=== PATIENT | female | born 1960 | race Caucasian/White ===

== ENCOUNTER 2017-09-12 13:49 | Inpatient (IN) | payer OTHER ==
[~2017-09-12] VITALS: Ht 157.5 cm; Wt 57.9 kg
[~2017-09-12 13:49] MED LIST: PERCOCET 5/31 TABLET PO; VALIUM5 MG PO
[2017-09-12 14:27] LABS: HEMATOCRIT 46.3 % (36.0-46.0); MCH 30.7 PG (29.0-34.0); MCHC 34.6 G/DL (30.0-36.0); MCV 88.7 FL (83-99); PLATELET COUNT 366 K/uL (156-360); RBC DIS.WIDTH-CV 11.9 % (11.8-14.6); RBC DIS.WIDTH-SD 38.9 % (39-53); RED BLOOD COUNT 5.22 M/uL (3.80-5.20); WHITE BLOOD COUNT 21.1 K/uL (4.1-10.2)
[2017-09-12 14:35] LABS: CHLORIDE 101 mEq/L (99-109)
[2017-09-12 14:36] LABS: POTASSIUM 3.5 mEq/L (3.7-5.4); SODIUM 140 mEq/L (136-147)
[2017-09-12 14:37] LABS: GLUCOSE 113 mg/dL (70-99)
[2017-09-12 14:41] LABS: CREATININE 0.7 mg/dL (0.6-1.3); GFR ESTIMATE (CALCULATED) > 59 mL/min/
[2017-09-12 14:42] LABS: UREA NITROGEN (BUN) 6 mg/dL (9-23)
[2017-09-12 15:11] LABS: ALBUMIN 4.6 g/dL (3.2-4.8)
[2017-09-12 15:14] LABS: TOTAL PROTEIN 7.7 g/dL (6.4-8.3)
[2017-09-12 15:15] LABS: TOTAL BILIRUBIN 0.8 mg/dL (0.0-1.0)
[2017-09-12 15:17] LABS: ALKALINE PHOSPHATASE 136 IU/L (3-129)
[2017-09-12 15:19] LABS: AST (GOT) 20 IU/L (2-34); DIRECT BILIRUBIN 0.3 mg/dL (0.0-0.3)
[2017-09-12 15:20] LABS: ALT (GPT) 18 IU/L (3-49); LIPASE 21 U/L (1.0-51.0)
[2017-09-12 16:51] LABS: APPEARANCE CLEAR ((CLEAR)); BILIRUBIN NEGATIVE; BLOOD NEGATIVE; COLOR YELLOW ((YELLOW)); GLUCOSE (STRIP) NEGATIVE; KETONES NEGATIVE; LEUKOCYTES NEGATIVE; NITRITE NEGATIVE; PROTEIN (STRIP) NEGATIVE; UROBILINOGEN 0.2 MG/DL (0.2-1.0)
[2017-09-12] MEDS ORDERED: ALEVE220 MG PO (17:12)
[2017-09-12] MEDS ORDERED: EXCEDRIN MIGRA1 EAC3 PO (17:15)
[2017-09-12] MEDS ORDERED: VITAMIN E PO (17:18)
[2017-09-12] MEDS ORDERED: WOMEN'S 50 PLU1 EACH PO (17:18)
[2017-09-12] MEDS ORDERED: WOMEN'S DAILY1 EAC5 PO (17:21)
[2017-09-12 17:30] LABS: INTER. NORMALIZED RATIO 1.1
[2017-09-12 17:33] LABS: PTT 31.2 SEC (25-37)
[2017-09-12 20:20] VITALS: BP 180/92
[2017-09-12 23:29] VITALS: BP 142/74
[2017-09-13 00:38] LABS: BASOPHIL (%) 0.1 % (0-1); EOSINOPHIL (%) 0 % (0-5); HEMATOCRIT 41.9 % (36.0-46.0); HEMOGLOBIN 14.5 G/DL (11.9-15.5); IMMATURE GRANULOCYTE (%) 0.4 % (0.0-0.7); LYMPHOCYTE (%) 16.5 % (15-42); LYMPHOCYTE COUNT 3.4 K/uL (1.0-2.8); MCHC 34.6 G/DL (30.0-36.0); MCV 89.7 FL (83-99); MONOCYTE (%) 4.8 % (3-12); NEUTROPHIL (%) 78.2 % (45-76); NEUTROPHIL COUNT 15.8 K/uL (1.8-6.4); PLATELET COUNT 306 K/uL (156-360); RBC DIS.WIDTH-CV 12.3 % (11.8-14.6); RBC DIS.WIDTH-SD 40.5 % (39-53); RED BLOOD COUNT 4.67 M/uL (3.80-5.20); WHITE BLOOD COUNT 20.3 K/uL (4.1-10.2)
[2017-09-13 03:30] VITALS: BP 173/90
[2017-09-13 06:29] LABS: HEMATOCRIT 41.9 % (36.0-46.0); HEMOGLOBIN 14.4 G/DL (11.9-15.5); MCH 30.7 PG (29.0-34.0); MCHC 34.4 G/DL (30.0-36.0); MCV 89.3 FL (83-99); PLATELET COUNT 316 K/uL (156-360); RBC DIS.WIDTH-CV 12.5 % (11.8-14.6); RBC DIS.WIDTH-SD 40.8 % (39-53); RED BLOOD COUNT 4.69 M/uL (3.80-5.20); WHITE BLOOD COUNT 19.7 K/uL (4.1-10.2)
[2017-09-13 06:56] LABS: ALBUMIN 3.6 G/DL (3.2-4.8); ALKALINE PHOSPHATASE 94 IU/L (3-129); ALT (GPT) 12 IU/L (3-49); AST (GOT) 12 IU/L (2-34); CHLORIDE 107 MEQ/L (99-109); CREATININE 0.4 MG/DL (0.6-1.3); GFR ESTIMATE (CALCULATED) > 59 mL/min/; GLUCOSE 100 mg/dL (70-99); POTASSIUM 3.3 MEQ/L (3.7-5.4); SODIUM 142 MEQ/L (136-147); TOTAL BILIRUBIN 0.6 MG/DL (0.0-1.0); TOTAL PROTEIN 6.4 G/DL (6.4-8.3); UREA NITROGEN (BUN) 4 mg/dL (9-23)
[2017-09-13 07:18] VITALS: BP 141/97
[2017-09-13 11:49] VITALS: BP 112/72
[2017-09-13 16:17] VITALS: BP 131/76
[2017-09-13 19:30] VITALS: BP 125/77
[2017-09-14 00:17] VITALS: BP 140/79
[2017-09-14 07:05] VITALS: BP 130/63
[2017-09-14 13:29] LABS: HEMATOCRIT 40.3 % (36.0-46.0); HEMOGLOBIN 13.2 G/DL (11.9-15.5); MCH 30.6 PG (29.0-34.0); MCHC 32.8 G/DL (30.0-36.0); PLATELET COUNT 285 K/uL (156-360); RBC DIS.WIDTH-CV 12.6 % (11.8-14.6); RBC DIS.WIDTH-SD 43.5 % (39-53); RED BLOOD COUNT 4.31 M/uL (3.80-5.20); WHITE BLOOD COUNT 14.1 K/uL (4.1-10.2)
[2017-09-14 13:30] LABS: MCV 93.5 FL (83-99)
[2017-09-14 13:44] LABS: CHLORIDE 109 MEQ/L (99-109); CREATININE 0.6 MG/DL (0.6-1.3); GFR ESTIMATE (CALCULATED) > 59 mL/min/; GLUCOSE 80 mg/dL (70-99); POTASSIUM 3.5 MEQ/L (3.7-5.4); SODIUM 144 MEQ/L (136-147); UREA NITROGEN (BUN) 4 mg/dL (9-23)
[2017-09-14 20:00] VITALS: BP 132/61
[2017-09-15 01:33] VITALS: BP 162/94
[2017-09-15 05:23] LABS: PROTEIN C FUNCTIONAL ACTIVITY+ 80 % (70-180)
[2017-09-15 08:11] VITALS: BP 142/75
[2017-09-15 08:48] LABS: HEMATOCRIT 38.5 % (36.0-46.0); HEMOGLOBIN 12.9 G/DL (11.9-15.5); MCH 30.4 PG (29.0-34.0); MCHC 33.5 G/DL (30.0-36.0); MCV 90.8 FL (83-99); PLATELET COUNT 313 K/uL (156-360); RBC DIS.WIDTH-CV 12.6 % (11.8-14.6); RBC DIS.WIDTH-SD 41.6 % (39-53); RED BLOOD COUNT 4.24 M/uL (3.80-5.20); WHITE BLOOD COUNT 16.9 K/uL (4.1-10.2)
[2017-09-15 13:26] LABS: Protein S, Free 124 % normal (50-147)
[2017-09-15 15:39] VITALS: BP 116/66
[2017-09-15 19:36] VITALS: BP 116/67
[2017-09-16 00:12] VITALS: BP 129/65
[2017-09-16 03:53] VITALS: BP 114/58
[2017-09-16 06:16] LABS: BASOPHIL (%) 0.3 % (0-1); EOSINOPHIL (%) 1.4 % (0-5); EOSINOPHIL COUNT 0.2 K/uL (0-0.3); HEMATOCRIT 35.4 % (36.0-46.0); HEMOGLOBIN 11.9 G/DL (11.9-15.5); IMMATURE GRANULOCYTE (%) 0.3 % (0.0-0.7); LYMPHOCYTE (%) 29.2 % (15-42); LYMPHOCYTE COUNT 3.4 K/uL (1.0-2.8); MCH 30.7 PG (29.0-34.0); MCHC 33.6 G/DL (30.0-36.0); MCV 91.5 FL (83-99); MONOCYTE (%) 7.2 % (3-12); MONOCYTE COUNT 0.9 K/uL (0-0.8); NEUTROPHIL (%) 61.6 % (45-76); NEUTROPHIL COUNT 7.3 K/uL (1.8-6.4); PLATELET COUNT 289 K/uL (156-360); RBC DIS.WIDTH-CV 12.6 % (11.8-14.6); RBC DIS.WIDTH-SD 41.7 % (39-53); RED BLOOD COUNT 3.87 M/uL (3.80-5.20); WHITE BLOOD COUNT 11.8 K/uL (4.1-10.2)
[2017-09-16 06:44] LABS: ALKALINE PHOSPHATASE 71 IU/L (3-129); ALT (GPT) 8 IU/L (3-49); AST (GOT) 10 IU/L (2-34); CHLORIDE 109 MEQ/L (99-109); CREATININE 0.5 MG/DL (0.6-1.3); GFR ESTIMATE (CALCULATED) > 59 mL/min/; GLUCOSE 83 mg/dL (70-99); POTASSIUM 3.1 MEQ/L (3.7-5.4); SODIUM 144 MEQ/L (136-147); UREA NITROGEN (BUN) 2 mg/dL (9-23)
[2017-09-16 06:47] LABS: TOTAL BILIRUBIN 0.4 MG/DL (0.0-1.0)
[2017-09-16 06:50] VITALS: BP 126/67
[2017-09-16 11:15] VITALS: BP 123/60
[2017-09-16 15:30] VITALS: BP 138/72
[2017-09-17 00:02] VITALS: BP 135/59
[2017-09-17 06:16] LABS: INTER. NORMALIZED RATIO 1.2
[2017-09-17 06:19] LABS: PTT 84.5 SEC (25-37)
[2017-09-17 06:45] VITALS: BP 151/79
[2017-09-17 11:52] LABS: HEMATOCRIT 36.2 % (36.0-46.0); HEMOGLOBIN 12.1 G/DL (11.9-15.5); MCH 30.3 PG (29.0-34.0); MCHC 33.4 G/DL (30.0-36.0); MCV 90.5 FL (83-99); PLATELET COUNT 359 K/uL (156-360); RBC DIS.WIDTH-CV 12.4 % (11.8-14.6); RBC DIS.WIDTH-SD 41.3 % (39-53); WHITE BLOOD COUNT 10.6 K/uL (4.1-10.2)
[2017-09-17 15:40] VITALS: BP 137/65
[2017-09-18 00:38] VITALS: BP 113/57
[2017-09-18 06:14] LABS: BASOPHIL (%) 0.4 % (0-1); EOSINOPHIL (%) 0.8 % (0-5); EOSINOPHIL COUNT 0.1 K/uL (0-0.3); HEMATOCRIT 34.8 % (36.0-46.0); HEMOGLOBIN 11.5 G/DL (11.9-15.5); IMMATURE GRANULOCYTE (%) 0.6 % (0.0-0.7); LYMPHOCYTE (%) 31.7 % (15-42); LYMPHOCYTE COUNT 2.9 K/uL (1.0-2.8); MCH 29.8 PG (29.0-34.0); MCV 90.2 FL (83-99); MONOCYTE (%) 9.2 % (3-12); MONOCYTE COUNT 0.8 K/uL (0-0.8); NEUTROPHIL (%) 57.3 % (45-76); NEUTROPHIL COUNT 5.2 K/uL (1.8-6.4); PLATELET COUNT 352 K/uL (156-360); RBC DIS.WIDTH-CV 12.4 % (11.8-14.6); RBC DIS.WIDTH-SD 40.5 % (39-53); RED BLOOD COUNT 3.86 M/uL (3.80-5.20)
[2017-09-18 06:45] VITALS: BP 125/62
[2017-09-18 13:40] LABS: INTER. NORMALIZED RATIO 1.2
[2017-09-18 15:58] VITALS: BP 130/78
[2017-09-18 19:33] LABS: C DIFF TOXIN NEGATIVE (NEGATIVE)
[2017-09-19] VITALS: BP 128/63
[2017-09-19 06:28] LABS: INTER. NORMALIZED RATIO 1.2
[2017-09-19 07:55] VITALS: BP 122/67
[2017-09-19] MEDS ORDERED: COUMADIN5 MG PO ×2 (11:23→13:07)
[2017-09-19] MEDS ORDERED: LOVENOX60 MG/0.6 SC (11:23)
== END 2017-09-19 14:23 | disposition home or self-care (01) | DRG 299 ==
LOC: EME 13:49 → 5EAST 17:17 → EDOF 17:17 → ENRESERV 17:19 → 5EAST 19:54
PROVIDERS: Hospitalist; Internal Medicine Hematology & Oncology; Nurse Practitioner Acute Care; Physician Assistant; Physician Assistant Surgical
DX: I82.890 Acute embolism and thrombosis of other specified veins (principal); K75.1 Phlebitis of portal vein; I81 Portal vein thrombosis; K55.9 Vascular disorder of intestine, unspecified; K51.50 Left sided colitis without complications; R74.8 Abnormal levels of other serum enzymes; I10 Essential (primary) hypertension; F17.210 Nicotine dependence, cigarettes, uncomplicated; Z86.718 Personal history of other venous thrombosis and embolism; Z90.710 Acquired absence of both cervix and uterus
CPT/HCPCS: 71260; 74174; 74177; 80048; 80053; 80076; 81003; 81240 90; 81241 90; 83605; 83630; 83690; 83735; 85025; 85027; 85303 90; 85305 90; 85306 90; 85610; 85651; 85730; 86140; 86146 90; 86147 90; 86850; 86900; 86901; 87040; 87177; 87493; 87506; 99281; 99285; J0360; J1650; J1956; J2060; J2405; J3010; J3480; J7030; S0030

== ENCOUNTER → 2017-12-29 | Outpatient (CLI) | payer OTHER ==
[~2017-12-29] MED LIST changes: +ALEVE220 MG PO; +COUMADIN5 MG PO; +EXCEDRIN MIGRA1 EAC3 PO; +LOVENOX60 MG/0.6 SC; +VITAMIN E PO; +WOMEN'S 50 PLU1 EACH PO; +WOMEN'S DAILY1 EAC5 PO
== END | disposition home or self-care (01) ==
LOC: EKG 10:46
DX: I51.7 Cardiomegaly (principal)
CPT/HCPCS: 93306